=== PATIENT | male | born 1975 | race Caucasian/White ===

== ENCOUNTER 2021-04-01 17:34 | Emergency (ER) | payer MEDICAID ==
[~2021-04-01] VITALS: Ht 182.9 cm; Wt 110.3 kg
[2021-04-01 17:49] VITALS: BP 127/84
[2021-04-01] MEDS ORDERED: LIDOCAINE MPF 1% 10 MG/ML VIAL INJ ONE (19:05)
[2021-04-01] MEDS ORDERED: ACETAMINOPHEN 325 MG TAB PO ONE (19:05)
[2021-04-01] MEDS ORDERED: IBUP-2213 PO (20:26)
[2021-04-01] MEDS ORDERED: ACET-2619 PO (20:26)
[2021-04-01] MEDS ORDERED: AMOX-1000 PO (20:26)
[2021-04-01] MEDS ORDERED: AMOXIL/CLAVULANATE 875/125 MG 1 TAB PO ONE (20:30)
[2021-04-01 20:50] VITALS: BP 120/75
== END 2021-04-01 20:50 | disposition home or self-care (01) ==
LOC: MED 17:34
DX: S62.637A Displaced fracture of distal phalanx of left little finger, initial encounter for closed fracture (principal); S61.317A Laceration without foreign body of left little finger with damage to nail, initial encounter; Z79.1 Long term (current) use of non-steroidal anti-inflammatories (NSAID); Z79.899 Other long term (current) drug therapy; Z79.2 Long term (current) use of antibiotics; X58.XXXA Exposure to other specified factors, initial encounter; Y92.89 Other specified places as the place of occurrence of the external cause; Y93.89 Activity, other specified; Y99.8 Other external cause status
CPT/HCPCS: 11730; 12002; 73140; 90471; 90715; 99284; J2001